=== PATIENT | male | born 1955 | race African-American/Black ===

== ENCOUNTER 2020-08-27 15:56 | Emergency (ER) | payer MEDICARE ==
[~2020-08-27] VITALS: Ht 175.3 cm; Wt 66.0 kg
[~2020-08-27 15:56] MED LIST: AMLO10TA4 MT
[2020-08-27 15:59] VITALS: BP 158/78
[2020-08-27 18:24] LABS: BASOPHILS % 0.6 % (0.0-2.0); EOSINOPHILS % 2.6 % (0.0-5.0); HEMATOCRIT. 39.3 % (42.0-52.0); HEMOGLOBIN. 13.1 g/dL (14.0-18.0); LYMPHOCYTES % 27.9 % (20.0-50.0); MEAN CORPUSCULAR HEMOGLOBIN 30.8 pg (28.0-32.0); MEAN PLATELET VOLUME 7.1 fl (7.4-10.4); MONOCYTES % 6.4 % (2.0-8.0); NEUTROPHILS % 62.5 % (40.0-76.0); PLATELET 292 x1000/uL (130-400); RED BLOOD CELL COUNT 4.27 mill/uL (4.7-6.1); RED CELL DISTRIBUTION WIDTH 14.4 % (11.6-14.6)
[2020-08-27 18:29] LABS: CHLORIDE 105 mEq/L (98-107)
[2020-08-27 18:49] LABS: ETHANOL BLOOD 428 mg/dL
== END 2020-08-27 19:13 | disposition left against medical advice (07) ==
LOC: ER 15:56
DX: I10 Essential (primary) hypertension (principal); F10.129 Alcohol abuse with intoxication, unspecified; Y90.8 Blood alcohol level of 240 mg/100 ml or more; Z96.649 Presence of unspecified artificial hip joint
CPT/HCPCS: 36415; 80053; 80320; 85025; 93005; 99285; G0480